=== PATIENT | female | born 1975 | race Caucasian/White ===

== ENCOUNTER 2022-03-30 16:16 | Emergency (ER) | payer MEDICAID ==
[~2022-03-30] VITALS: Ht 154.9 cm; Wt 88.0 kg
[2022-03-30 16:22] VITALS: BP 135/68
--- NOTE | 2022-03-30 16:27 | NUR ---
FLU AND DAGOBERTO SWABS COLLECTED AND WALKED TO LAB
[2022-03-30] MEDS ORDERED: BENZ-300 PO (17:14)
[2022-03-30] MEDS ORDERED: FLONAS NS (17:14)
[2022-03-30] MEDS ORDERED: LORA1T1237 PO (17:14)
--- NOTE | 2022-03-30 17:29 | NUR ---
Patient discharged with v/s stable. Written and verbal after care instructions given and explained. Patient alert, oriented and verbalized understanding of instructions. Ambulatory with steady gait. All questions addressed prior to discharge. ID band removed. Patient advised to follow up with PMD. Rx of FLONASE given. Patient educated on indication of medication including possible reaction and side effects. Opportunity to ask questions provided and answered.
== END 2022-03-30 17:29 | disposition home or self-care (01) ==
LOC: MED 16:16
DX: J32.9 Chronic sinusitis, unspecified (principal); Z20.822 Contact with and (suspected) exposure to COVID-19; R09.82 Postnasal drip; R03.0 Elevated blood-pressure reading, without diagnosis of hypertension
CPT/HCPCS: 99283

== ENCOUNTER 2022-04-02 15:12 | Emergency (ER) | payer MEDICAID ==
[~2022-04-02] VITALS: Ht 157.5 cm; Wt 74.8 kg
[~2022-04-02 15:12] MED LIST: BENZ-300 PO; FLONAS NS; LORA1T1237 PO
[2022-04-02 15:22] VITALS: BP 106/71
[2022-04-02] MEDS ORDERED: SUD30 PO (16:28)
[2022-04-02] MEDS ORDERED: AMOX-999 PO (16:28)
[2022-04-02] MEDS ORDERED: IBUP-2213 PO (16:28)
--- NOTE | 2022-04-02 16:42 | NUR ---
Patient discharged with v/s stable. Written and verbal after care instructions ABOUT SINUSITIS given and explained. Patient alert, oriented and verbalized understanding of instructions. Ambulatory with steady gait. All questions addressed prior to discharge. ID band removed. Patient advised to follow up with PMD. Rx of AUGMENTIN 500-125, IBUPROFEN, SUDAFED given. Patient educated on indication of medication including possible reaction and side effects. Opportunity to ask questions provided and answered.
== END 2022-04-02 16:42 | disposition home or self-care (01) ==
LOC: MED 15:12
DX: J32.9 Chronic sinusitis, unspecified (principal); Z79.899 Other long term (current) drug therapy; Z79.2 Long term (current) use of antibiotics; Z88.0 Allergy status to penicillin
CPT/HCPCS: 99283

== ENCOUNTER 2022-08-26 16:10 | Emergency (ER) | payer MEDICAID ==
[~2022-08-26] VITALS: Ht 154.9 cm; Wt 90.3 kg
[~2022-08-26 16:10] MED LIST changes: +AMOX-999 PO; +IBUP-2213 PO; +SUD30 PO
[2022-08-26 16:24] VITALS: BP 131/80
--- NOTE | 2022-08-26 16:48 | NUR ---
The patient's care was reviewed and supervised by HUNTER SHANE RN.
[2022-08-26] MEDS ORDERED: IBUP-2213 PO (17:56)
--- NOTE | 2022-08-26 18:00 | NUR ---
PER PA, SHORT LEG POSTERIOR SPLINT APPLIED AND WRAPPED WITH 2 TONJA WRAPS. PT GIVEN CRUTCHES AND RETURNED SAFE DEMONSTRATION OF USE. PT W/C TO CAR
--- NOTE | 2022-08-26 18:23 | NUR ---
Patient discharged with v/s stable. Written and verbal after ANKLE FRACTURE care instructions given and explained. Patient verbalized understanding. Wheel Chair Assisted with to car. All questions addressed prior to discharge. Advised to follow up with PMD. PT. INSTRUCTED TO WEAR SPLIT AT ALL TIMES FOR SAFE, PAIN RELIEF, AND TO HELP REDUCE SWELLING. PT. AGRESS TO FOLLOW UP WITH PMD FOR CAST PLACEMENT. PT. GIVEN COPY OF X-RAYS IN CD TO PMD.
== END 2022-08-26 18:20 | disposition home or self-care (01) ==
LOC: MED 16:10
DX: S82.62XA Displaced fracture of lateral malleolus of left fibula, initial encounter for closed fracture (principal); Z88.0 Allergy status to penicillin; Z79.899 Other long term (current) drug therapy; W01.0XXA Fall on same level from slipping, tripping and stumbling without subsequent striking against object, initial encounter; Y93.89 Activity, other specified; Y92.89 Other specified places as the place of occurrence of the external cause; Y99.8 Other external cause status
CPT/HCPCS: 29515; 73610; 73630; 99284

== ENCOUNTER 2022-09-23 18:38 | Emergency (ER) | payer OTHER, MEDICAID ==
[~2022-09-23] VITALS: Ht 157.5 cm; Wt 91.7 kg
[2022-09-23 19:01] VITALS: BP 128/92
--- NOTE | 2022-09-23 19:46 | NUR ---
JOHNSON Hoffman examining patient.
[2022-09-23] MEDS ORDERED: KETOROLAC 30 MG/ML VIAL IM ONE (19:50)
[2022-09-23] MEDS ORDERED: LID5T TP (20:28)
[2022-09-23] MEDS ORDERED: NAPR-54 PO (20:28)
[2022-09-23] MEDS ORDERED: CYCL-711 PO (20:28)
[2022-09-23 21:00] VITALS: BP 150/94
--- NOTE | 2022-09-23 21:10 | NUR ---
Patient discharged with v/s stable. Written and verbal after care instructions given and explained. Patient alert, oriented and verbalized understanding of instructions. Ambulatory with steady gait. All questions addressed prior to discharge. ID band removed. Patient advised to follow up with PMD. Rx of FLEXERIL, LIDODERM 5% PATCH and NAPROSYN given. Patient educated on indication of medication including possible reaction and side effects. Opportunity to ask questions provided and answered.
== END 2022-09-23 21:10 | disposition home or self-care (01) ==
LOC: MED 18:38
DX: S39.012A Strain of muscle, fascia and tendon of lower back, initial encounter (principal); V49.88XA Car occupant (driver) (passenger) injured in other specified transport accidents, initial encounter; Y93.89 Activity, other specified; Y92.89 Other specified places as the place of occurrence of the external cause; Y99.8 Other external cause status
CPT/HCPCS: 72110; 96372; 99283; J1885

== ENCOUNTER 2022-10-17 18:15 | Emergency (ER) | payer MEDICAID, OTHER ==
[~2022-10-17] VITALS: Ht 152.4 cm; Wt 92.5 kg
[~2022-10-17 18:15] MED LIST changes: +CYCL-711 PO; +LID5T TP; +NAPR-54 PO
[2022-10-17 18:56] VITALS: BP 117/54
[2022-10-17] MEDS ORDERED: ACETAMINOPHEN EXTRA STRENGTH 500 MG TAB PO ONE (19:40)
[2022-10-17] MEDS ORDERED: ACET-10509 PO (19:45)
--- NOTE | 2022-10-17 21:48 | NUR ---
Patient discharged. Written and verbal after care instructions given and explained. Patient alert, oriented and verbalized understanding of instructions. Ambulatory with steady gait. All questions addressed prior to discharge. ID band removed. Patient advised to follow up with PMD. Rx of Tylenol given. Patient educated on indication of medication including possible reaction and side effects. Opportunity to ask questions provided and answered.
== END 2022-10-17 21:48 | disposition home or self-care (01) ==
LOC: MED 18:15
DX: S82.422A Displaced transverse fracture of shaft of left fibula, initial encounter for closed fracture (principal); Z88.0 Allergy status to penicillin; Z79.899 Other long term (current) drug therapy; X58.XXXA Exposure to other specified factors, initial encounter; Y93.89 Activity, other specified; Y92.89 Other specified places as the place of occurrence of the external cause; Y99.8 Other external cause status
CPT/HCPCS: 73610; 99283

== ENCOUNTER 2023-06-12 18:09 | Emergency (ER) | payer MEDICAID ==
[~2023-06-12] VITALS: Ht 154.9 cm; Wt 88.0 kg
[~2023-06-12 18:09] MED LIST changes: +ACET-10509 PO
[2023-06-12 18:55] VITALS: BP 132/87; PULSE 105; RESP 18; TEMP 98.4; O2SAT 99
[2023-06-12] MEDS ORDERED: CEPH-588 PO (19:47)
[2023-06-12] MEDS ORDERED: PSEU-250 PO (19:47)
[2023-06-12 20:20] VITALS: BP 125/80; PULSE 81; RESP 18; TEMP 98.4; O2SAT 99
== END 2023-06-12 20:20 | disposition home or self-care (01) ==
LOC: MED 18:09
DX: H66.93 Otitis media, unspecified, bilateral (principal); J30.2 Other seasonal allergic rhinitis; Z79.899 Other long term (current) drug therapy
CPT/HCPCS: 99283

== ENCOUNTER 2023-09-10 19:50 | Emergency (ER) | payer MEDICAID ==
[~2023-09-10] VITALS: Ht 154.9 cm; Wt 91.6 kg
[~2023-09-10 19:50] MED LIST changes: +CEPH-588 PO; +NAPR-337 PO; -NAPR-54 PO; +PSEU-250 PO
[2023-09-10 20:03] VITALS: BP 142/66; PULSE 78; RESP 18; TEMP 97.7; O2SAT 98
[2023-09-10 22:17] VITALS: BP 136/62; PULSE 75; RESP 18; TEMP 97.8; O2SAT 98
[2023-09-10] MEDS ORDERED: CYCL-711 PO (23:17)
== END 2023-09-10 23:23 | disposition home or self-care (01) ==
LOC: MED 19:50
DX: R25.2 Cramp and spasm (principal); Z88.0 Allergy status to penicillin; Z79.899 Other long term (current) drug therapy
CPT/HCPCS: 99283